=== PATIENT | female | born 1950 | race Caucasian/White ===

== ENCOUNTER 2017-06-15 06:53 | Inpatient (IN) | payer MEDICARE ==
[~2017-06-15] VITALS: Ht 157.5 cm; Wt 87.8 kg
[2017-06-15] MEDS ORDERED: SODIUM CHLORIDE 0.9% 1,000 ML IV ONE (07:07)
[2017-06-15] MEDS ORDERED: MORPHINE SULFATE 4 MG/ML, 1ML IVPush PRN (07:30)
[2017-06-15] MEDS ORDERED: ONDANSETRON 2MG/ML, 2ML IVPush ONE (07:30)
[2017-06-15] MEDS ORDERED: PLEASE ENTER ALLERGIES MC SCH ×2 (08:00)
[2017-06-15] MEDS ORDERED: ONDANSETRON 2MG/ML, 2ML ONE (08:08)
[2017-06-15] MEDS ORDERED: HYDROmorphone 1 MG/ML, 1ML ONE ×2 (08:09→11:09)
[2017-06-15] MEDS: HYDROmorphone 1 MG/ML, 1ML IVPush PRN ×2 (08:15→11:16)
[2017-06-15 09:47] LABS: BLOOD UREA NITROGEN 16 mg/dL (7-18)
[2017-06-15] MEDS ORDERED: ONDANSETRON 2MG/ML, 2ML IVPush PRN ×2 (12:00→19:00)
[2017-06-15] MEDS: morphine SULFATE 10 MG/ML, 1ML IVPush PRN ×2 (14:06→17:17)
[2017-06-15 14:34] VITALS: BP 130/83
[2017-06-15 14:49] VITALS: BP 130/83
[2017-06-15] MEDS: SODIUM CHLORIDE 0.9% 1,000 ML IV SCH (14:56)
[2017-06-15 20:00] VITALS: BP 119/69
[2017-06-15] MEDS ORDERED: LEVETIRACETAM 500 MG TABLET PO ONE (21:00)
[2017-06-15] MEDS ORDERED: LEVETIRACETAM 500 MG TABLET PO SCH (21:00)
[2017-06-16] MEDS: SODIUM CHLORIDE 0.9% 1,000 ML IV SCH ×3 (00:37→17:40)
[2017-06-16 02:00] VITALS: BP 116/72
[2017-06-16 06:13] LABS: BLOOD UREA NITROGEN 14 mg/dL (7-18)
[2017-06-16 07:16] VITALS: BP 133/80
[2017-06-16] MEDS: LEVETIRACETAM 500 MG TABLET PO SCH ×2 (08:01→20:48)
[2017-06-16] MEDS: ONDANSETRON 2MG/ML, 2ML IVPush PRN ×2 (09:44→13:32)
[2017-06-16] MEDS: HYDROcodone/APAP 5/325 TABLET PO PRN ×2 (10:05→20:53)
[2017-06-16] MEDS ORDERED: LOSA50TA2 PO (11:21)
[2017-06-16] MEDS ORDERED: ATOR10TA9 PO (11:21)
[2017-06-16] MEDS ORDERED: FESO4TAB PO (11:21)
[2017-06-16] MEDS ORDERED: AMLO5TAB4 PO (11:21)
[2017-06-16] MEDS ORDERED: MIRA50TA PO (11:21)
[2017-06-16] MEDS ORDERED: DARI7.5T3 PO (11:25)
[2017-06-16] MEDS ORDERED: METOCLOPRAMIDE 5 MG/ML, 2ML IVPush PRN (12:30)
[2017-06-16 13:58] VITALS: BP 128/81
[2017-06-16 20:00] VITALS: BP 148/82
[2017-06-16] MEDS: ATORVASTATIN 10 MG TABLET PO SCH (20:47)
[2017-06-17] MEDS: SODIUM CHLORIDE 0.9% 1,000 ML IV SCH ×3 (01:26→17:05)
[2017-06-17] MEDS: HYDROcodone/APAP 5/325 TABLET PO PRN ×2 (01:26→20:31)
[2017-06-17 02:00] VITALS: BP 152/80
[2017-06-17 06:03] LABS: BLOOD UREA NITROGEN 13 mg/dL (7-18)
[2017-06-17 07:53] VITALS: BP 165/98
[2017-06-17] MEDS: ONDANSETRON 2MG/ML, 2ML IVPush PRN ×3 (07:53→20:31)
[2017-06-17] MEDS: morphine SULFATE 10 MG/ML, 1ML IVPush PRN ×2 (08:02→12:52)
[2017-06-17] MEDS: LEVETIRACETAM 500 MG TABLET PO SCH (12:02)
[2017-06-17] MEDS ORDERED: METOCLOPRAMIDE 5 MG/ML, 2ML IVPush PRN (12:30)
[2017-06-17 14:29] VITALS: BP 142/89
[2017-06-17] MEDS: PROMETHAZINE 25 MG/ML, 1ML IM PRN (16:43)
[2017-06-17 20:00] VITALS: BP 165/83
[2017-06-17] MEDS: ATORVASTATIN 10 MG TABLET PO SCH (20:31)
[2017-06-17] MEDS: LEVETIRACETAM 500 MG in SODIUM CHLORIDE 0.9% 100 ML IV SCH (21:08)
[2017-06-18] MEDS: PROMETHAZINE 25 MG/ML, 1ML IM PRN (00:36)
[2017-06-18 02:00] VITALS: BP 168/84
[2017-06-18] MEDS: SODIUM CHLORIDE 0.9% 1,000 ML IV SCH (05:21)
[2017-06-18 08:30] VITALS: BP 155/74
[2017-06-18] MEDS: LEVETIRACETAM 500 MG in SODIUM CHLORIDE 0.9% 100 ML IV SCH (09:47)
[2017-06-18] MEDS ORDERED: LOSARTAN 50MG TABLET PO SCH (10:30)
[2017-06-18] MEDS ORDERED: AMLODIPINE 5 MG TABLET PO SCH (10:30)
[2017-06-18] MEDS: ACETAMINOPHEN 325 MG TABLET PO PRN ×2 (11:00→15:54)
[2017-06-18 15:00] VITALS: BP 144/85
[2017-06-18] MEDS ORDERED: LEVE500T53 PO (16:02)
[2017-06-18] MEDS ORDERED: ACET325T14 PO (16:02)
== END 2017-06-18 17:30 | disposition home health service (06) | DRG 84 ==
LOC: ED 07:41 → EDIP 11:25 → SUATTDRO 11:52 → 4WST 14:13
PROVIDERS: ADMIT Internal Medicine; ATTEND Internal Medicine
DX: S06.5X9A Traumatic subdural hemorrhage with loss of consciousness of unspecified duration, initial encounter (principal); E78.5 Hyperlipidemia, unspecified; I10 Essential (primary) hypertension; Y09 Assault by unspecified means; S16.1XXA Strain of muscle, fascia and tendon at neck level, initial encounter; Z79.899 Other long term (current) drug therapy; Y07.03 Male partner, perpetrator of maltreatment and neglect; R40.2410 Glasgow coma scale score 13-15, unspecified time; S00.83XA Contusion of other part of head, initial encounter; S00.33XA Contusion of nose, initial encounter; Y08.89XA Assault by other specified means, initial encounter; Y93.89 Activity, other specified; Y92.89 Other specified places as the place of occurrence of the external cause; Y99.8 Other external cause status
CPT/HCPCS: 36415; 70450; 70486; 71010; 72125; 80048; 82040; 83735; 85025; 85610; 96361; 96374; 96375; 96376; J1170; J1953; J2405; J2550; 92523-GN; J2270; J2765; J7030